=== PATIENT | male | born 1975 | race Caucasian/White ===

== ENCOUNTER 2017-01-07 18:44 | Emergency (ER) | payer OTHER ==
[~2017-01-07 18:44] MED LIST: ALBU8I INH; MEDR4PAK3 PO
[2017-01-07 18:45] VITALS: BP 136/87; PULSE 104; RESP 12; TEMP 98.4; O2SAT 99
[2017-01-07] MEDS: RESP: ALBUTEROL 2.5 MG/IPRATROPIUM 0.5 MG NEB (SCH) INH ×2 (19:30→19:32)
[2017-01-07] MEDS ORDERED: predniSONE 20 MG TAB PO ONE (19:30)
--- NOTE | 2017-01-07 20:11 | PD ---
HPI Chief Complaint: Respiratory Symptoms Time Seen by Provider: 19:18 Travel History International Travel<30 days: No Contact w/Intl Traveler<30days: No Traveled to known affect area: No History of Present Illness HPI 41-year-old white male presents emergency Department with complaints of shortness of breath and wheezing. He has a history of asthma and has been out of his respiratory inhaler. The patient is a smoker. He denies any recent illness. He states that the symptoms are moderate. Positive chest tightness. No fever chills, earache, sore throat, sputum, nausea, vomiting, diarrhea, abdominal pain or urinary symptoms. Symptoms are typically alleviated by albuterol worsened by smoking. PFSH Past Medical History Asthma: Yes Tetanus Vaccination: < 5 Years Past Surgical History Other Surgery: Yes (colonoscopy) Social History Alcohol Use: No Tobacco Use: Yes (03/02 ppd) Substance Use: No Allergies-Medications (Allergen,Severity, Reaction): Coded Allergies: No Known Allergies (Verified , 03/09/15) Reported Meds & Prescriptions Reported Meds & Active Scripts Active Medrol Dosepak (Methylprednisolone) 4 Mg [place] 4 Mg PO DIRECTED TAKE DIRECTED Ventolin Hfa (Albuterol Sulfate) 8 Gm Aero 2 Puff INH Q6 * SHAKE WELL BEFORE USE * Review of Systems General / Constitutional: No: Fever Respiratory: Positive: Cough, Shortness of Breath, Wheezing Physical Exam Narrative GENERAL: Well-developed, well-nourished in mild respiratory distress. Nontoxic appearing. Speaks in 4-5 word sentences. HEAD: Normocephalic, atraumatic. EYES: Pupils equal round and reactive. Extraocular motions intact. No scleral icterus. No injection or drainage. ENT: TMs clear without erythema. The external auditory canals clear. Nose: clear . Posterior pharynx is pink and moist. No tonsillar edema or exudate. Uvula midline. Airway patent. NECK: Trachea midline.Supple, nontender, moves head freely. No central bony tenderness or spasm. CARDIOVASCULAR: Regular rate and rhythm without murmurs, gallops, or rubs. RESPIRATORY: Expiratory wheezes. No Rales. No rhonchi. Mild distress GASTROINTESTINAL: Abdomen soft, non-tender, nondistended. No hepato-splenomegaly , or palpable masses. No guarding. EXTREMITIES: No clubbing, cyanosis, or edema. No joint tenderness, effusion, or edema noted. BACK: Nontender without deformity or crepitance. No flank tenderness. Data Data Last Documented VS Vital Signs Date Time Temp Pulse Resp B/P (MAP) Pulse Ox O2 Delivery O2 Flow Rate FiO2 01/07/17 18:45 98.4 104 12 136/87 (103) 99 Orders Orders Prednisone (Deltasone) (01/07/17 19:30) Albuterol-Ipratropium Neb (Duoneb Neb) (01/07/17 19:30) MDM Medical Decision Making Medical Screen Exam Complete: Yes Emergency Medical Condition: Yes Medical Record Reviewed: Yes Differential Diagnosis MDM: High Differential diagnoses: Pneumonia, bronchitis, URI, asthma, RAD, legionnaire's disease, SARS, ARDS, influenza, bronchiolitis, RSV,PE,CHF Narrative Course Patient's given 80 mg of prednisone by mouth and 2 albuterol Atrovent treatments. He has had nearly complete resolution of the shortness of breath. This is asthma exacerbation Diagnosis Primary Impression: Acute asthma exacerbation Qualified Codes: J45.21 - Mild intermittent asthma with (acute) exacerbation Patient Instructions: General Instructions Additional Instructions: Rest. Increase fluids. Tylenol and Advil. Stop smoking. prednisone, and albuterol. Followup with your Dr. in one week. Return to the ER for any problems. Med/Other Pt SpecificInfo: Prescription(s) given Disposition: 01 DISCHARGE HOME Condition: Stable Jah Romo Jan 07, 2017 20:11
[2017-01-07] MEDS ORDERED: ALBUAER3 INH (20:14)
[2017-01-07] MEDS ORDERED: MEDR4PAK PO (20:14)
== END 2017-01-07 20:25 | disposition home or self-care (01) ==
LOC: NEPK 18:44
DX: J45.901 Unspecified asthma with (acute) exacerbation (principal); F17.200 Nicotine dependence, unspecified, uncomplicated; Z79.899 Other long term (current) drug therapy
CPT/HCPCS: 94640; 94664; 99284; J7512